=== PATIENT | female | born 1965 | race Hispanic/Latino ===

== ENCOUNTER 2017-08-25 00:23 | Inpatient (IN) | payer SELFPAY ==
[2017-08-25 00:59] LABS: #Basophils 0.1 thou/uL (0.0-0.2); #Lymphocytes 1.7 thou/uL (1.20-3.40); #Monocytes 0.9 thou/uL (0.11-0.59); #Neutrophils 9.5 thou/uL (1.40-6.50); %Basophils 0.5 % (0.0-1.0); %Eosinophils 0.1 % (0.0-10.0); %Lymphocytes 14.3 % (21.0-51.0); %Monocytes 7.1 % (0.0-10.0); Hemoglobin 13.6 g/dL (12.0-16.0); Mean Corpuscular HGB CONC 32.7 g/dL (32.0-36.0); Mean Corpuscular Hemoglobin 29.6 pg (27.0-31.0); Mean Corpuscular Volume 90.7 fl (81.0-99.0); Mean Platelet Volume 7.8 fL (7.4-10.4); Platelet Count 177 thou/uL (130-400); RBC Distribution Width 12.2 % (11.5-14.5); White Blood Cell (WBC) Count 12.1 thou/uL (4.8-10.8)
[2017-08-25 01:00] LABS: Bilirubin Small (Negative); Blood, Urine Moderate (Negative); Clarity TURBID (Clear); Glucose, Urine (Dipstick) Negative (Negative); Leukocyte Large (Negative); Nitrite Negative (Negative); Protein, Urine (Dipstick) 100 mg/dL (Neg-Trace); Specific Gravity, Urine 1.019 (1.002-1.036)
[2017-08-25 01:03] LABS: Bacteria/HPF 3+ HPF (None Seen); Hyaline Casts/LPF 0-3 HYALINE CAST LPF (0-3 Hyaline); Pathc Cast-AUWi Flag 0.94 (0-2.49); Squamous Epithelial 0-3 HPF (0-3)
[2017-08-25 01:06] LABS: Yeast-AUWi Flag 51.6 (0-25.0)
[2017-08-25] MEDS ORDERED: Ketorolac Tromethamine 30 MG/ML VIAL ONE ×2 (01:07→14:41)
[2017-08-25] MEDS ORDERED: Ondansetron HCl/PF 4 MG/2 ML Vial ONE ×2 (01:07→14:41)
[2017-08-25 01:10] LABS: RBC/HPF 0-3 HPF (0-3)
[2017-08-25 01:11] LABS: Renal Epithelial None Seen HPF (0-3); Transitional Epithelial 0-3 HPF (0-3); Yeast-All Forms None Seen HPF (None Seen)
[2017-08-25 01:16] LABS: ALT (SGPT) 20 U/L (8-55); AST (SGOT) 14 U/L (5-34); Alkaline Phosphatase 95 U/L (40-150); Anion Gap 15 mmol/L (10-20); BUN (Urea Nitrogen) 9 mg/dL (9.8-20.1); Bilirubin, Total 0.7 mg/dL (0.2-1.2); Calc. Creatinine Clearance 0 mL/min (70-130); Calcium 9.3 mg/dL (7.8-10.44); Carbon Dioxide 20 mmol/L (22-29); Chloride 104 mmol/L (98-107); Estimated GFR-MDRD 77; Globulin 3.4 g/dL (2.4-3.5); Glucose 175 mg/dL (70-105); Potassium 3.8 mmol/L (3.5-5.1); Protein, Total 7.4 g/dL (6.0-8.3); Sodium 135 mmol/L (136-145)
[2017-08-25] MEDS ORDERED: Piperacillin/Tazobactam 3.375 GM in Sodium Chloride 0.9% 100 ML IVPB SCH ×2 (04:30→12:00)
[2017-08-25] MEDS ORDERED: Ondansetron HCl/PF 4 MG/2 ML Vial IVP PRN ×2 (04:34→14:06)
--- NOTE | 2017-08-25 05:06 | HP ---
CHIEF COMPLAINT: Abdominal pain. HISTORY OF PRESENT ILLNESS: The patient is a 52-year-old Mosotho speaking only female who presents w ith abdominal pain. History was taken via translation by the translation line. The patient states t hat she started having right upper quadrant abdominal pain, beginning several days ago, the pain was accompanied by nausea as well as fevers. The patient denied any vomiting, diarrhea or constipation. She also states that she has been having some pain with urination. PAST MEDICAL HISTORY: The patient is significant for hypertension. PAST SURGICAL HISTORY: The patient has had , hysterectomy and breast biopsy. SOCIAL HISTORY: Negative tobacco or alcohol use. ALLERGIES: No known drug allergies. OUTPATIENT MEDICATIONS: The patient only takes [id number] Tylenol or Motrin as needed for ache s and pains. REVIEW OF SYSTEMS: See HPI. Rest of 14-point review of systems is negative. FAMILY HISTORY: Reviewed and noncontributory. LABORATORY AND X-RAY DATA: CBC, white count is 12.1, H and H 13 and 41 with platelet of 177. Sodium is 135, potassium 3.8, chloride 104, bicarb 20, BUN 9, creatinine 0.7. The patient's UA showed a la rge amount of leukocyte esterase and negative nitrites and 3+ bacteria. The patient's abdomen and pelvis CT and ultrasound has shown a large common bile duct, no choledochol ithiasis and thickened gallbladder. She also has stranding around her right kidney with perinephric stranding. PHYSICAL EXAMINATION: VITAL SIGNS: Pulse 94, respirations 18, blood pressure 123/73, patient satting 94% on room air and T -max was 100.4. GENERAL: The patient is awake, alert, and oriented x3, in no acute distress. HEENT: Pupils are round, react to light and accommodation. Extraocular muscles intact. TMs are audelia ar. No erythema in throat. NECK: No JVD, no lymphadenopathy. HEART: Regular rate and rhythm. LUNGS: Clear to auscultation bilaterally. ABDOMEN: Positive bowel sounds. Soft, tender to palpation in the right upper quadrant. No rebound or rigidity. She also has right flank pain. EXTREMITIES: No clubbing, cyanosis or edema. NEUROLOGIC: Cranial nerves II-XII are grossly intact. Muscle strength was 5/5 throughout. PSYCHIAT MAURA: The patient is cooperative and answering questions appropriately. ASSESSMENT AND PLAN: 1. Acute ascites. Continue on Unasyn. General Surgery has been consulted and has seen the patient. They requested GI to be consulted in the morning with further surgical recommendations to follow. Continue with pain control. 2. Right pyelonephritis. Continue on current antibiotics, which will cover for both #1 and #2. 3. CODE STATUS: The patient is a FULL CODE.
--- NOTE | 2017-08-25 05:39 | CON ---
DATE OF CONSULTATION: 08/25/2017 HISTORY OF PRESENT ILLNESS: This is a 52-year-old female, who presented to [facility] with a chief complaint of abdominal and flank pain x2 days. Per patient, pain began 2 days ago and is associated with dysuria and fever. She does report some right upper quadrant tenderness to palpat ion. Pain is worse with inspiration. No alleviating factors. The patient was evaluated in the [facility] room and found to have pyelonephritis, cholecystitis and choledocholithiasis. [facility] was notified, surgical services consulted for cholecystitis. Upon my evaluation, the patient state s the pain is improved with pain medications, but chief complaint remains the same. ALLERGIES: None. HOME MEDICATIONS: The patient denies any daily home medications that is currently taking Tylenol and aspirin since the onset of her pain. CHRONIC MEDICAL ILLNESSES: Include hypertension. PAST SURGICAL HISTORY: , hysterectomy and left breast biopsy. SOCIAL HISTORY: The patient lives at home with . Denies alcohol, tobacco or illicit drug use . REVIEW OF SYSTEMS: Performed and negative except as indicated in the HPI. PHYSICAL EXAMINATION: VITAL SIGNS: Blood pressure 120/65, pulse 76, respirations 17, temperature 98.3, O2 sat 94% on room air. GENERAL: Well developed, obese female in no acute distress, resting in bed. HEAD: Normocephalic, atraumatic. EYES: Pupils are PERRL. Extraocular movements are intact. NECK: Supple. Trachea is midline. PULMONARY: Normal work of breathing. Symmetric rise. LUNGS: Clear to auscultation bilaterally. CARDIOVASCULAR: Regular rate and rhythm, no obvious murmurs, rubs or gallops. GASTROINTESTINAL: Soft with right upper quadrant tenderness to palpation. There is a positive Lowell y sign. MUSCULOSKELETAL: Moves all extremities x4. Strength 5/5. NEUROLOGIC: There are GCS of 15. No focal deficit noted. LABORATORY FINDINGS: WBC 12.1, hemoglobin 13.6, hematocrit 41.7, platelet count 177. Sodium 135, po tassium 3.8, chloride 104, carbon dioxide 20, BUN 9, creatinine 0.78, glucose 175. Lactic acid 1.6, AST and ALT within normal limits, total bilirubin 0.7. Urinalysis was significant for proteinuria, t race ketones, moderate blood, small amount of bilirubin, large amount of leukocyte esterase and WBCs greater than 50/too numerous to count and 3+ bacteria. RADIOGRAPHIC FINDINGS: CT of the abdomen and pelvis, official read is pending. Preliminary report i ndicates that there is right perinephric/ureteric stranding, cholelithiasis. Abdominal ultrasound de monstrated cholelithiasis with stones noted in the neck, positive Ritchie sign fluid surrounding the g allbladder, common bile duct measured 0.80 and gallbladder wall was 0.45. Chest x-ray official read is pending, but there is no obvious acute cardiopulmonary process. ASSESSMENT: 1. Abdominal pain. 2. Cholecystitis with choledocholithiasis. 3. Pyelonephritis. PLAN: The patient to be admitted to medicine services. GI consult for ERCP. The surgical team will follow along for management of cholecystitis once ERCP has been performed. The patient showed broad spectrum antibiotics. We are currently recommending Zosyn. Pain management per primary. The patie nt should be n.p.o. until evaluated by GI. Assessment and plan was discussed with the patient and sp ouse at bedside through the use of a real property appraiser. They vocalized no questions at this time. The case has been discussed with Dr. Pascual at the time of this dictation.
[2017-08-25] MEDS: Sodium Chloride 0.9% 1,000 ML IV SCH ×2 (05:57→17:57)
[2017-08-25 06:51] VITALS: BMI 42.7
[2017-08-25] MEDS ORDERED: FLU VACC QS2017-18 36 mo. & older 0.5 ML SYRINGE IM ONE (07:15)
[2017-08-25] MEDS ORDERED: Famotidine/PF 20 mg/2ml Vial SLOW IVP SCH (09:00)
--- NOTE | 2017-08-25 10:12 | RAD ---
CHEST 1 VIEW: HISTORY: A 52-year-old female with chest pain and right-sided abdominal pain. Minimal cardiomegaly. Mild vascular congestion. Inspiration is somewhat less than optimal compared to the prior 11/01/14 study. No confluent pneumonia, overt edema, or pleural effusion. IMPRESSION: No acute intrathoracic disease. Cardiomegaly. POS: [facility]
[2017-08-25] MEDS ORDERED: Fentanyl 100 MCG/2 ML VIAL ONE ×3 (11:03→14:37)
[2017-08-25] MEDS ORDERED: Lidocaine 1% w/Epinephrine 1:200K 30 ML VIAL ONE (11:03)
[2017-08-25] MEDS ORDERED: Iothalamate Meglumine 60% 50 ML VIAL FS ONE (11:03)
[2017-08-25] MEDS ORDERED: Bupivacaine PF 0.5% 30 ML VIAL ONE (11:03)
[2017-08-25] MEDS ORDERED: HYDROmorphone 0.5 MG/0.5 ML SYRINGE ONE (11:06)
[2017-08-25] MEDS ORDERED: traMADol HCl 50 MG TAB PO PRN ×2 (13:56)
--- NOTE | 2017-08-25 14:05 | ULT ---
PRELIMINARY REPORT/[facility]/EMERGENCY AFTER HOURS PROCEDURE: EXAM: US Abdomen Limited, Right Upper Quadrant CLINICAL HISTORY: 52 years old, female; Pain; Other: Ruq pain, fever, lfts wnl TECHNIQUE: Real-time ultrasound of the right upper quadrant with image documentation. COMPARISON: CT Stone Protocol 2017-08-25 01:29 FINDINGS: Liver: Proximal extrahepatic common bile duct measures 8 mm in diameter. Gallbladder: Echogenic, shadowing focus within the gallbladder, measuring up to 3.1 cm in maximal dim ension, compatible calcified gallstone. Small amount of pericholecystic fluid. Gallbladder wall measures 5 mm in thickness. Sonographic Ritchie sign was reportedly positive. Common bile duct: See above. Pancreas: Normal as visualized. Right kidney: Right kidney is normal in appearance measuring 13.1 cm in length. No stones. No hydrone phrosis. IMPRESSION: 1. Cholelithiasis, with sonographic evidence of acute cholecystitis. 2. Mild dilation of the proximal extrahepatic common bile duct. No visible choledocholithiasis. No in trahepatic biliary dilation. Thank you for allowing us to participate in the care of your patient. Dictated and Authenticated by: Akira Mahmood MD 08/25/2017 3:14 AM Central Time ([employer]) FINAL REPORT RIGHT UPPER QUADRANT ULTRASOUND: EMERGENT AFTER HOURS EXAM TIME: 2:35 a.m. DATE: 08/25/17. FINDINGS: There is evidence for cholelithiasis with at least 1 large gallstone and some gallbladder wall thicke daren. Fatty changes in the liver. A 0.8 cm common bile duct. Positive Ritchie's sign. IMPRESSION: Cholelithiasis with evidence for cholecystitis. Fatty changes of the liver. POS: [facility]
[2017-08-25] MEDS ORDERED: Promethazine HCl 25 MG/ML VIAL SLOW IVP PRN (14:06)
[2017-08-25] MEDS ORDERED: Promethazine HCl 25 MG/ML VIAL IM PRN (14:06)
[2017-08-25] MEDS ORDERED: HYDROmorphone 2 MG/ML VIAL SLOW IVP PRN (14:06)
--- NOTE | 2017-08-25 14:07 | CT ---
PRELIMINARY REPORT/[facility]/EMERGENCY AFTER HOURS PROCEDURE: EXAM: CT Abdomen and Pelvis Without Intravenous Contrast CLINICAL HISTORY: 52 years old, female; Pain; Abdominal pain; Generalized; Patient HX: R/O stone TECHNIQUE: Axial computed tomography images of the abdomen and pelvis without intravenous contrast. Coronal reformatted images were created and reviewed. COMPARISON: No relevant prior studies available. FINDINGS: Lower thorax: No acute findings. ABDOMEN: Liver: Hepatic steatosis. Gallbladder and bile ducts: Cholelithiasis, with possible minimal gallbladder wall thickening, which can be seen with cholecystitis. Pancreas: Normal. Spleen: Normal. Adrenals: Normal. Kidneys and ureters: Minimal right hydronephrosis, with minimal right perinephric and right proximal periureteral stranding. No obstructive etiology identified. Stomach and bowel: Normal. Appendix: No findings to suggest acute appendicitis. PELVIS: Bladder: Normal. Reproductive: Normal as visualized. ABDOMEN and PELVIS: Intraperitoneal space: Normal. No free air. No significant fluid collection. Bones/joints: Degenerative changes of the hips and sacroiliac joints. Multilevel thoraco-lumbar spine degenerative changes. No acute fracture. No dislocation. Soft tissues: Small fat containing umbilical hernia. Vasculature: Atherosclerotic disease of the abdominal aorta and iliac arteries. Phleboliths within th e pelvis. No abdominal aortic aneurysm. Lymph nodes: Normal. IMPRESSION: 1. Cholelithiasis, with possible minimal gallbladder wall thickening, which can be seen with cholecys titis. Recommend assessment of biliary enzymes and consider gallbladder ultrasound or more definitive evaluation. 2. Minimal right hydronephrosis, with minimal right perinephric and right proximal periureteral stran ding. No obstructive etiology identified. Findings may be secondary to recently passed calculus. Concomitant urinary tract infection possible. 3. Incidental/non-acute findings are described above. Thank you for allowing us to participate in the care of your patient. Dictated and Authenticated by: Akira Mahmood MD 08/25/2017 1:53 AM Central Time ([employer]) FINAL REPORT ABDOMEN AND PELVIC CT SCAN WITHOUT IV CONTRAST: EMERGENCY AFTER HOURS EXAM TIME: 1:31 a.m. DATE: 08/25/17. Cholelithiasis with possible minimal gallbladder wall thickening which could possibly be associated w ith some cholecystitis. No ductal dilatation. There is some right perirenal fat stranding and mild dilatation of the right upper collecting system and right ureter possibly related to prior stone pass age, but no evidence for an acute obstructing calculus. The possibility of right pyelonephritis i s also a consideration. No other significant acute process in the abdomen or pelvis. Fatty changes of the liver. POS: [facility]
[2017-08-25] MEDS: Piperacillin/Tazobactam 4.5 GM in Sodium Chloride 0.9% 100 ML IVPB SCH ×3 (14:09→20:00)
--- NOTE | 2017-08-25 14:38 | PDOC.EVN ---
Event Note - Event Note Event Note: Discussed with Dr. Pascual. Chart reviewed. Dr. Pascual will take over as primary MD in house as pt is surgical .Appreciate the input. Floor notified. will sign off
[2017-08-25] MEDS ORDERED: Lidocaine 1% PF 5 ML VIAL ONE (14:41)
[2017-08-25] MEDS ORDERED: Glycopyrrolate 0.2 MG/ML 5 ML SYRINGE ONE (14:41)
[2017-08-25] MEDS ORDERED: ePHEDrine/0.9% NaCl/PF SYRINGE 50 mg/10 ml ONE (14:41)
[2017-08-25] MEDS ORDERED: Propofol 200 MG/20 ML VIAL ONE (14:41)
[2017-08-25] MEDS ORDERED: PHENYLEPHRINE-NS 100 MCG/ML 10 ML SYRINGE ONE (14:41)
[2017-08-25] MEDS ORDERED: Dexamethasone 20 MG/5 ML VIAL ONE (14:41)
[2017-08-25] MEDS ORDERED: Ibuprofen 800 MG TAB PO PRN (16:01)
--- NOTE | 2017-08-25 16:23 | OP ---
DATE OF OPERATION: 08/25/2017 PREOPERATIVE DIAGNOSES: 1. Acute cholecystitis with cholelithiasis. 2. Dilated common bile duct for patient's age at 8 mm. POSTOPERATIVE DIAGNOSES: 1. Acute cholecystitis with cholelithiasis. 2. Dilated common bile duct for patient's age at 8 mm. PROCEDURES PERFORMED: Laparoscopic cholecystectomy with intraoperative cholangiogram. SURGEON: Dr. Pascual. ANESTHESIA: General endotracheal. ESTIMATED BLOOD LOSS: 50 mL FLUIDS GIVEN: 1700 mL crystalloids. SPONGE AND INSTRUMENT COUNT: Certified as correct x2. COMPLICATIONS: None apparent at time of operation. INDICATIONS FOR PROCEDURE: A 52-year-old obese woman presented with insidious onset epigast raul to right upper quadrant abdominal pain. Clinical and radiographic examination was consistent with acute cholecystitis with cholelithiasis for which patient was brought to the operating room for cholecystectomy. Common bile duct size was 8 mm which is dilated for the patient's age. Therefore, the decision was m quyen also to perform an intraoperative cholangiogram to rule out choledocholithiasis. Findings are consistent with a distended gallbladder in the usual anatomic location with intraluminal large solitary gallstone. Cystic duct was tortuous. Cholangiogram revealed no filling defects. DESCRIPTION OF PROCEDURE: Informed consent obtained from the patient who was brought to the operatin g room and placed in supine position. Following general anesthesia, abdomen is sterilely prepped and draped in the usual fashion. The skin below the umbilicus was infiltrated with 0.25% Marcaine with epinephrine. A small curvilinear infraumbilical incision is made using an 11 scalpel. Umbilical sta lk was grasped with Sabina's and elevated. Veress needle was then inserted through this incision and placed in the peritoneal cavity through which the abdomen was insufflated with 3 liters of CO2 gas. Intra-abdominal pressure was noted at 3 mmHg. Following abdominal insufflation, Veress needle was r emoved and a 5 mm trocar was introduced using a Visiport under laparoscopy. Laparoscopy confirmed pr oper placement of the port, no injuries to underlying structures. Additional laparoscopy reveals gal lbladder in the usual anatomic location completely encased by omental adhesions. On the laparoscopy, a 12 mm epigastric and two 5 mm right lateral subcostal ports were placed after the overlying skin w ere infiltrated with 0.25% Marcaine with epinephrine and an appropriate incisions made. The patient was placed in the reverse Trendelenburg position, rotated to her left. I introduced the [place] dis sector with cautery, using this to take down omental adhesions to reveal the fundus of the gallbladde r. Prestige grasper was then brought into the peritoneal cavity through the right lateral subcostal port grasping the fundus of the gallbladder which was elevated cephalad. Omental adhesions were then bluntly taken down from the remainder of the gallbladder with good hemostasis. Second Prestige gras per was introduced through the right medial subcostal port grasping the Freeman's pouch which was ret racted laterally. The cystic duct was carefully dissected free from surrounding structures at the tr [facility]. The duct was quite tortuous. Adherent fiberoptic tissues were meticulously dissect ed off from the cystic duct. I applied clip at the junction of the cystic duct and gallbladder. Nex t, a cystic artery was dissected free from surrounding structures and divided between clips. Two cli ps were applied proximally and one clip at the junction of the cystic artery and gallbladder. Using EndoShears, cystotomy was made proximal to the securing clip between the cystic duct and gallbladder. I then introduced a cholangiocatheter from the right upper quadrant through a separate stab incisio n. The duct was flushed first with saline. It was then inserted through the cystic ductal lumen and secured with 2 clips. The duct was flushed first with saline and then a cholangiogram was completed using 15 mL of full strength Conray contrast under fluoroscopy. Total fluoroscopy time was 33 secon ds. No filling ductal defects were noted. Following completion of the cholangiogram, the securing c lips were removed and a cholangiocatheter was removed from the peritoneal cavity. The cystic duct wa s then divided between clips, applying two clips proximally. Gallbladder itself was removed from the liver bed using cautery with good hemostasis. The gallbladder is delivered of the abdominal cavity using an EndoCatch. Operative site was irrigated clear with saline solution noting good hemostasis i n place. All clips in place, no bile stains or bleeding present. Finding no other pathology, laparo scopy was terminated. Fascia of the epigastric port was closed using 0 Vicryl suture and Endo closur e device under laparoscopy. Abdomen was desufflated. All ports and instruments were removed and acc ounted for. Skin incisions are then closed using 4-0 Monocryl suture in subcuticular fashion. Sloan castro was applied to all incisions. The patient tolerated this operation without any apparent complic ation and was returned to the recovery room in satisfactory condition.
--- NOTE | 2017-08-25 17:29 | RAD ---
CHOLANGIOGRAM IN SURGERY: History: Cholelithiasis. Comparison: Gallbladder ultrasound, 08-25-17. FINDINGS/IMPRESSION: Multiple limited intraoperative fluoroscopic views were taken during a cholangiogram in surgery. Contrast is seen within the cystic duct, common bile duct, and duodenum. No obvious filling defects a re seen. Contrast also refluxes into the pancreatic duct. POS: [facility]
[2017-08-25 17:34] VITALS: TEMP 98.5
[2017-08-25] MEDS ORDERED: Acetaminophen 500 MG TAB PO SCH (18:00)
[2017-08-25] MEDS ORDERED: Ketorolac Tromethamine 30 MG/ML VIAL IVP SCH (18:00)
[2017-08-25] MEDS ORDERED: Famotidine 20 MG TAB PO SCH (21:00)
[2017-08-25 22:24] VITALS: BP 120/68
--- NOTE | 2017-08-25 23:45 | DIS ---
DATE OF SERVICE: 08/25/2017 ADMISSION DIAGNOSES: 1. Abdominal pain. 2. Cholecystitis. 3. Urinary tract infection. 4. History of hypertension. DISCHARGE DIAGNOSES: 1. Abdominal pain. 2. Cholecystitis. 3. Urinary tract infection. 4. History of hypertension. PROCEDURES: Laparoscopic cholecystectomy with Dr. Pascual on 08/25/2017. HOSPITAL COURSE: This is a 52-year-old female who presented to [facility] with a chief complaint of right upper quadrant and right flank pain x2 days. The patient was evaluated in the emergency [facility] and found to have acute cholecystitis with evidence of a dilated common bile duct and urinary tract infection. The patient was taken for a laparoscopic cholecystectomy with IOC. She was additionally given broad spectrum IV antibiotics. Postoperatively, the patient did well. She was able to mobili ze. The pain was controlled with p.o. analgesics. She was tolerating p.o. She was discharged on evening of 08/25/2017. DISCHARGE INSTRUCTIONS: Discharge instructions were provided to the patient as documented in the [facility] medical record. She is advised to return to the emergency room if she has any further diffic ulties with urination, fever, worsening abdominal pain. DISCHARGE MEDICATIONS: Patient may resume home medications. Additionally, she was discharged on Ult edvin 50 mg p.o. 1 tab q.6 hours p.r.n. for severe pain and Bactrim-DS 1 tab p.o. b.i.d. x6 days. FOLLOWUP APPOINTMENTS: The patient is to follow up with primary care provider p.r.n. She is to foll ow up with Dr. Pascual in his clinic in approximately 2 weeks; until that time, patient should not lift anything greater than 20 pounds. This is merely a summary of the patient's hospitalization; for ailyn roberts in depth information, please see her medical record in its entirety.
== END 2017-08-25 22:15 | disposition home or self-care (01) | DRG 418 ==
LOC: ERS 00:23 → SURG A 03:48
PROVIDERS: ADMIT Hospitalist; ATTEND Surgery
PROC: 0FT44ZZ Resection of Gallbladder, Percutaneous Endoscopic Approach (ICD-10-PCS; principal; 2017-08-25)
PROC: BF101ZZ Fluoroscopy of Bile Ducts using Low Osmolar Contrast (ICD-10-PCS; 2017-08-25)
DX: K80.00 Calculus of gallbladder with acute cholecystitis without obstruction (principal); N12 Tubulo-interstitial nephritis, not specified as acute or chronic; R18.8 Other ascites; K83.8 Other specified diseases of biliary tract; Z68.41 Body mass index [BMI] 40.0-44.9, adult; I10 Essential (primary) hypertension; E66.9 Obesity, unspecified
CPT/HCPCS: 36415; 47532; 71045; 74176; 76705; 80053; 81003; 81015; 83605; 85025; 87040; 87086; 87186; 88304; 93005; 96361; 96374; 96375; J0696; J1100; J1170; J1885; J2001; J2270; J2405; J2543; J2704; J3010; J7050; Q9961; S0020; S0028